=== PATIENT | female | born 1995 | race Two or more races ===

== ENCOUNTER 2016-08-31 10:50 | Inpatient (IN) | payer MEDICAID ==
[2016-08-31] MEDS ORDERED: Morphine Sulfate 4 mg/mL 1mL Syr ONE (11:25)
[2016-08-31] MEDS ORDERED: Sodium Chloride 0.9% 2,000 ML IV ONE (11:25)
--- NOTE | 2016-08-31 11:27 | ED Physician Chart ---
Chief Complaint/HPI - Patient Information Date Seen:: 08/31/16 Time Seen:: 11:02 Chief Complaint:: ABD PAIN X 1 WEEK History of Present Illness:: This 20-year-old female presents with epigastric pain that began one week ago. The onset was gradual and the pain has some radiation to the back. The patient was seen at [facility] August 28 and diagnosed with acute pancreatitis. She was discharged August 29 when she was able to eat. She describes the pain as aching and sharp gives a severity at the present time of 8 /10. The pain is made worse by eating. No relieving factors. Pain is accompanied by nausea with no vomiting or diarrhea. Has a past history of UTIs and is having some dysuria and urinary frequency. No history of recent fever, chills or diaphoresis. No prior episodes of pancreatitis. The patient uses alcohol only occasionally. Her only medication is Proventil which he takes as needed for asthma episodes. Allergies:: Allergies Allergy/AdvReac Type Severity Reaction Status Date / Time No Known Allergies Allergy Verified 08/31/16 11:02 Review of Systems - Review of Systems General/Constitutional: No fever, No chills, No diaphoresis, No edema Skin: No skin lesions, No rash, No bruising Head: No headache, No light-headedness Eyes: No loss of vision, No pain, No diplopia ENT: No earache, No nasal drainage, No sore throat Neck: No neck pain, No swelling, No thyromegaly, No mass noted Cardio Vascular: No chest pain, No palpitations, No PND, No edema Pulmonary: No SOB, No cough, No sputum, No wheezing GI: Nausea, No vomiting, No diarrhea, Pain, No constipation, No hematemesis G/U: Dysuria, Frequency, No hematuria Career Development Specialist: No vaginal discharge, Other (the patient's most recent menstrual period was in July he had only mild spotting at that time. Her last normal menstrual period was in June.) Musculoskeletal: Bone or joint pain, No muscle pain Endocrine: No polyuria, No polydipsia Psychiatric: Prior psych history, No depression, No suicidal ideation Hematopoietic: No bruising Allergic/Immuno: No urticaria, No angioedema Neurological: No syncope, No focal symptoms, No weakness, No paresthesia, No headache, No seizure, No confusion, No vertigo Past Medical History - Past Medical History Past Medical History: Asthma/COPD Family History: Heart disease, Diabetes Melitus, Other (hypertension) Social History: Non Smoker (occasional alcohol), No Drug Use, Single, Employed Employment:: Works as a server cashier. Family Medical History - Family Member Mother History Unknown: Yes Physical Exam - Physical Examination General/Constitutional: Awake, Well-developed, well-nourished, Alert, GCS 15, Non-toxic appearing, Ambulatory Other Gen/Cons comments:: Does not appear to be in significant discomfort. Head: Atraumatic Eyes: Lids, conjuctiva normal, PERRL, EOMI Other Eyes comments:: Sclera are not jaundiced. Skin: No rash, No skin lesions, No ecchymosis Other Skin comments:: Patient has a birthmark which is quite small at the 9 o'clock position Of The umbilicus. ENMT: External ears, nose nl, Nasal exam nl, Lips, teeth, gums nl, Oropharynx nl , Tonsils nl Neck: Nontender, Full ROM w/o pain, No JVD, No nuchal rigidity, No mass, No stridor Respiratory: Nl effort/Exclusion, Clear to Auscultation, No Wheeze/Rhonchi/Rales Cardio Vascular: RRR, No murmur, gallop, rubs, NL S1 S2 Other Cardio Vascular comments:: Good pulses in all 4 extremities Other GI comments:: The abdomen is flat and nondistended. Bowel sounds are decreased but present. There is moderate tenderness in the epigastric region without associated rebound or guarding. There is mild tenderness in the right upper quadrant with no palpable liver edge. The spleen was not palpable. No pulsatile masses. No hernias. : No CVA tenderness Extremities: No tenderness or effusion, Full ROM, normal strength in all extremities, No edema Misc: Normal back, No paraspinal tenderness Other Misc comments:: No spinal tenderness of the thoracic or lumbar spine. Labs/Radiology/EKG Results - Lab Results Results: Laboratory Tests 08/31/16 08/31/16 08/31/16 11:25 11:25 11:30 WBC 10.0 RBC 4.68 Hgb 12.6 Hct 37.8 MCV 80.9 L MCH 26.9 L MCHC Differential 33.3 RDW 11.6 Plt Count 208 MPV 8.1 Neutrophils % 70.8 Lymphocytes % 18.7 L Monocytes % 7.5 Eosinophils % 2.2 LFTs were within normal parameters. The amylase was normal Basophils % 0.8 Sodium Potassium Chloride Carbon Dioxide Anion Gap BUN Creatinine Est GFR ( Amer) Est GFR (Non-Af Amer) BUN/Creatinine Ratio Glucose Calcium Total Bilirubin AST ALT and the lipase was elevated at 157. Alkaline Phosphatase Total Protein Albumin Globulin Albumin/Globulin Ratio Amylase Lipase Urine Source RANDOM Urine Color YELLOW Urine Clarity HAZY Urine pH 6.0 Ur Specific [place] 1.015 Urine Protein NEGATIVE Urine Glucose (UA) NEGATIVE Urine Ketones 15 H Urine Blood TRACE Urine Nitrate NEGATIVE Urine Bilirubin NEGATIVE Urine Urobilinogen 1.0 Ur Leukocyte Esterase LARGE H Urine RBC 2-5 Urine WBC 10-25 H Ur Epithelial Cells FEW Urine Bacteria OCCASIONAL Urine Test NEGATIVE 08/31/16 11:30 WBC RBC Hgb Hct MCV MCH MCHC Differential RDW Plt Count MPV Neutrophils % Lymphocytes % Monocytes % Eosinophils % Basophils % Sodium 137 Potassium 3.6 Chloride 102 Carbon Dioxide 25.9 Anion Gap 12.7 BUN 10 Creatinine 0.7 Est GFR ( Amer) > 60.0 Est GFR (Non-Af Amer) > 60.0 BUN/Creatinine Ratio 14.3 Glucose 91 Calcium 9.8 Total Bilirubin 1.0 AST 17 ALT 12 Alkaline Phosphatase 86 Total Protein 7.9 Albumin 4.4 Globulin 3.5 Albumin/Globulin Ratio 1.3 Amylase 92 Lipase 157 H Urine Source Urine Color Urine Clarity Urine pH Ur Specific [place] Urine Protein Urine Glucose (UA) Urine Ketones Urine Blood Urine Nitrate Urine Bilirubin Urine Urobilinogen Ur Leukocyte Esterase Urine RBC Urine WBC Ur Epithelial Cells Urine Bacteria Urine Test Laboratory findings: patient CBC was unremarkable with no leukocytosis or anemia. Electrolytes were all within normal parameters. Renal function was normal. Liver function appears normal. The amylase was within the normal range but the lipase was elevated at a value of 157. This is consistent with acute pancreatitis. Assessment - Assessment General Assessment: CASE SUMMARY: this 20-year-old female presents with epigastric pain that began one week ago. She was seen at [facility] on August 28 and admitted with a diagnosis of acute pancreatitis. She was discharged August 29 but has continued to have severe abdominal pain brought on by eating since her discharge. Physical examination there's moderate tenderness in the epigastric region with no associated rebound regarding. Laboratory studies show that she still has an elevated lipase level. The patient's symptoms were addressed with Jannet normal saline, Zofran and morphine. The patient is currently pain-free. She will be admitted for further bowel rest, hydration and pain management. She also needs additional workup to identify the cause for the pancreatitis. MDM DDX OF EPIGASTRIC PAIN: NOT ischemic heart disease based on the patient's age, history and physical examination. NOT Acute cholecystitis based on the patient's history of a negative ultrasound done last week, normal LFTs and minimal tenderness in the right upper quadrant. NOT Acute appendicitis based on the patient's history, physical examination and a negative CT scan from a week ago. ED Septic Shock - . Is Septic Shock (SBP<90, OR Lactate>4 mmol\L) present?: No Reassessment (Disposition) - Reassessment Reassessment Condition:: Improved - Diagnosis Diagnosis:: ACUTE PANCREATITIS, ACUTE CYSTITIS - Aftercare/Follow up Instructions Aftercare/Follow-Up Instructions:: Counseled pt regarding lab results/diagnosis & need follow up - Patient Disposition Discharge/Transfer:: Acute Care w/in this hosp Accepting Physician:: DR. BONE
[2016-08-31 11:39] LABS: % BASOPHILS 0.8 % (0.0-2.0); % EOSINOPHILS 2.2 % (0.0-5.0); % LYMPHOCYTES 18.7 % (20.0-50.0); % MONOCYTES 7.5 % (2.0-10.0); % NEUTROPHILS 70.8 % (40.0-80.0); HEMATOCRIT 37.8 % (35.0-45.0); HEMOGLOBIN 12.6 gm/dL (11.7-15.5); MEAN CELL VOLUME 80.9 fl (81-100); MEAN CORPUSCULAR HEMOGLOBIN 26.9 pg (27.0-31.0); MEAN CORPUSCULAR HGB CONC 33.3 pg (28.0-36.0); MEAN PLATELET VOLUME 8.1 fl; PLATELET COUNT 208 Th/cmm (150-400); RED BLOOD COUNT 4.68 Mil/cmm (3.80-5.10); RED CELL DISTRIBUTION WIDTH 11.6 % (11.5-20.0)
[2016-08-31 11:50] LABS: URINE BILIRUBIN NEGATIVE (NEGATIVE); URINE BLOOD TRACE (NEGATIVE); URINE COLOR YELLOW; URINE GLUCOSE (UA) NEGATIVE (NEGATIVE); URINE KETONE 15 mg/dL (NEGATIVE); URINE PROTEIN NEGATIVE (NEGATIVE)
[2016-08-31 11:52] LABS: URINE BACTERIA OCCASIONAL /hpf (NONE SEEN); URINE EPITHELIAL CELLS FEW /lpf (FEW)
[2016-08-31 11:53] LABS: ALB/GLOB RATIO 1.3 (1.0-1.8); ALKALINE PHOSPHATASE 86 U/L (34-104); AMYLASE SERUM 92 U/L (29-103); ANION GAP 12.7 (7.0-16.0); BUN - UREA NITROGEN 10 mg/dL (7-25); BUN/CREATININE RATIO 14.3; CALCIUM SERUM 9.8 mg/dL (8.6-10.3); CARBON DIOXIDE 25.9 mEq/L (21.0-31.0); CHLORIDE 102 mEq/L (98-107); CREATININE - SERUM 0.7 mg/dL (0.6-1.2); GLUCOSE 91 mg/dL (70-105); LIPASE 157 U/L (11-82); POTASSIUM SERUM 3.6 mEq/L (3.5-5.1); SGOT 17 U/L (13-39); SGPT/ALT 12 U/L (7-52); SODIUM SERUM 137 mEq/L (136-145)
[2016-08-31] MEDS ORDERED: Sodium Chloride 0.45% 1,000 ML IV ONE (15:07)
[2016-08-31 16:12] LABS: TRIGLYCERIDES 71 mg/dL (<150)
[2016-08-31] MEDS ORDERED: HYDROmorphone 2 mg/mL 1mL Vial IVP PRN (16:54)
[2016-08-31] MEDS ORDERED: Sodium Chloride 0.9% 1,000 ML IV SCH (17:00)
[2016-08-31 20:01] LABS: AMPHETAMINE URINE NEGATIVE (NEGATIVE); BARBITURATES URINE NEGATIVE (NEGATIVE)
[2016-09-01 08:03] LABS: % BASOPHILS 0.3 % (0.0-2.0); % EOSINOPHILS 1.8 % (0.0-5.0); % LYMPHOCYTES 21.4 % (20.0-50.0); % MONOCYTES 7.9 % (2.0-10.0); % NEUTROPHILS 68.6 % (40.0-80.0); HEMOGLOBIN 11.5 gm/dL (11.7-15.5); MEAN CELL VOLUME 81.6 fl (81-100); MEAN CORPUSCULAR HEMOGLOBIN 28.3 pg (27.0-31.0); MEAN CORPUSCULAR HGB CONC 34.6 pg (28.0-36.0); MEAN PLATELET VOLUME 8.8 fl; NEUTROPHILE ABSOLUTE 5.7 Th/cmm (1.8-8.0); PLATELET COUNT 195 Th/cmm (150-400); RED BLOOD COUNT 4.08 Mil/cmm (3.80-5.10); RED CELL DISTRIBUTION WIDTH 11.4 % (11.5-20.0); WHITE BLOOD COUNT 8.4 Th/cmm (4.8-10.8)
[2016-09-01 08:04] LABS: HEMATOCRIT 33.3 % (35.0-45.0)
--- NOTE | 2016-09-01 08:39 | General Progress Note ---
Subjective - Review of Systems Service Date: 09/01/16 Subjective: Pain is less Objective - Results Result Diagrams: 09/01/16 04:50 08/31/16 11:30 Recent Labs: Laboratory Last Values WBC 8.4 Th/cmm (4.8-10.8) 09/01/16 04:50 RBC 4.08 Mil/cmm (3.80-5.10) 09/01/16 04:50 Hgb 11.5 gm/dL (11.7-15.5) L 09/01/16 04:50 Hct 33.3 % (35.0-45.0) L D 09/01/16 04:50 MCV 81.6 fl (81-100) 09/01/16 04:50 MCH 28.3 pg (27.0-31.0) 09/01/16 04:50 MCHC Differential 34.6 pg (28.0-36.0) 09/01/16 04:50 RDW 11.4 % (11.5-20.0) L 09/01/16 04:50 Plt Count 195 Th/cmm (150-400) 09/01/16 04:50 MPV 8.8 fl 09/01/16 04:50 Neutrophils % 68.6 % (40.0-80.0) 09/01/16 04:50 Lymphocytes % 21.4 % (20.0-50.0) 09/01/16 04:50 Monocytes % 7.9 % (2.0-10.0) 09/01/16 04:50 Eosinophils % 1.8 % (0.0-5.0) 09/01/16 04:50 Basophils % 0.3 % (0.0-2.0) 09/01/16 04:50 Sodium 137 mEq/L (136-145) 08/31/16 11:30 Potassium 3.6 mEq/L (3.5-5.1) 08/31/16 11:30 Chloride 102 mEq/L (98-107) 08/31/16 11:30 Carbon Dioxide 25.9 mEq/L (21.0-31.0) 08/31/16 11:30 Anion Gap 12.7 (7.0-16.0) 08/31/16 11:30 BUN 10 mg/dL (7-25) 08/31/16 11:30 Creatinine 0.7 mg/dL (0.6-1.2) 08/31/16 11:30 Est GFR ( Amer) > 60.0 ml/min 08/31/16 11:30 Est GFR (Non-Af Amer) > 60.0 ml/min 08/31/16 11:30 BUN/Creatinine Ratio 14.3 08/31/16 11:30 Glucose 91 mg/dL (70-105) 08/31/16 11:30 Calcium 9.8 mg/dL (8.6-10.3) 08/31/16 11:30 Total Bilirubin 1.0 mg/dL (0.3-1.0) 08/31/16 11:30 AST 17 U/L (13-39) 08/31/16 11:30 ALT 12 U/L (7-52) 08/31/16 11:30 Alkaline Phosphatase 86 U/L (34-104) 08/31/16 11:30 Total Protein 7.9 gm/dL (6.0-8.3) 08/31/16 11:30 Albumin 4.4 gm/dL (3.7-5.3) 08/31/16 11:30 Globulin 3.5 gm/dL 08/31/16 11:30 Albumin/Globulin Ratio 1.3 (1.0-1.8) 08/31/16 11:30 Triglycerides 71 mg/dL (<150) 08/31/16 11:30 Amylase 92 U/L (29-103) 08/31/16 11:30 Lipase 157 U/L (11-82) H 08/31/16 11:30 Urine Source RANDOM 08/31/16 11:25 Urine Color YELLOW 08/31/16 11:25 Urine Clarity HAZY (CLEAR) 08/31/16 11:25 Urine pH 6.0 08/31/16 11:25 Ur Specific [place] 1.015 (1.005-1.030) 08/31/16 11:25 Urine Protein NEGATIVE mg/dL (NEGATIVE) 08/31/16 11:25 Urine Glucose (UA) NEGATIVE mg/dL (NEGATIVE) 08/31/16 11:25 Urine Ketones 15 mg/dL (NEGATIVE) H 08/31/16 11:25 Urine Blood TRACE (NEGATIVE) 08/31/16 11:25 Urine Nitrate NEGATIVE (NEGATIVE) 08/31/16 11:25 Urine Bilirubin NEGATIVE (NEGATIVE) 08/31/16 11:25 Urine Urobilinogen 1.0 E.U./dL (0.2 - 1.0) 08/31/16 11:25 Ur Leukocyte Esterase LARGE (NEGATIVE) H 08/31/16 11:25 Urine RBC 2-5 /hpf (0-5) 08/31/16 11:25 Urine WBC 10-25 /hpf (0-5) H 08/31/16 11:25 Ur Epithelial Cells FEW /lpf (FEW) 08/31/16 11:25 Urine Bacteria OCCASIONAL /hpf (NONE SEEN) 08/31/16 11:25 Urine Test NEGATIVE 08/31/16 11:25 Urine Opiates Screen NEGATIVE (NEGATIVE) 08/31/16 11:25 Ur Barbiturates Screen NEGATIVE (NEGATIVE) 08/31/16 11:25 Ur Phencyclidine Scrn NEGATIVE (NEGATIVE) 08/31/16 11:25 Amphetamines Screen NEGATIVE (NEGATIVE) 08/31/16 11:25 U Methamphetamines Scrn NEGATIVE (NEGATIVE) 08/31/16 11:25 U Benzodiazepines Scrn NEGATIVE (NEGATIVE) 08/31/16 11:25 U Cocaine Metab Screen NEGATIVE (NEGATIVE) 08/31/16 11:25 U Cannabinoids Screen NEGATIVE (NEGATIVE) 08/31/16 11:25 Ethyl Alcohol < 10 mg/dL (0-10) 08/31/16 11:30 - Physical Exam Vitals and I&O: Vital Signs Temp 97.5 F 09/01/16 06:00 Pulse 69 09/01/16 06:00 Resp 19 09/01/16 06:00 BP 104/50 09/01/16 06:00 Pulse Ox 98 09/01/16 06:00 Intake & Output 08/31/16 09/01/16 09/01/16 18:59 06:59 18:59 Intake Total 100 Balance 100 Intake: Oral 100 Active Medications: Current Medications Hydromorphone HCl (Dilaudid) 2 mg IVP Q6HR PRN PRN Reason: Pain (Moderate) Stop: 10/30/16 16:53 Last Admin: 08/31/16 17:24 Dose: 2 mg Sodium Chloride (Nacl 0.9%) 1,000 mls @ 125 mls/hr IV .Q8H VINAY Stop: 10/30/16 16:59 Last Admin: 08/31/16 17:23 Dose: 125 mls/hr Ondansetron HCl (Zofran) 4 mg IV Q4H PRN PRN Reason: Nausea / Vomiting Stop: 10/30/16 16:55 Last Admin: 08/31/16 20:52 Dose: 4 mg Pantoprazole Sodium (Protonix) 40 mg IVP DAILY [facility] Stop: 10/31/16 08:59 Last Admin: 09/01/16 08:24 Dose: 40 mg General: Alert, Oriented x3, No acute distress, Mild distress HEENT: PERRLA Neck: Supple Cardiovascular: Regular rate Lungs: Clear to auscultation Abdomen: Bowel sounds, Soft, Other (Tender at palpation in epygastry) Extremities: Other (No edema) Neurological: Normal gait Skin: Other (Warm and dry) Psych/Mental Status: Mental status NL Assessment/Plan - Problem List Patient Problems: All Active Problems UPPER ABDOMINAL PAIN (Acute) - Assessment Assessment: Patient is awake, alert, calm, in no acute distress. Dx: Pancreatitis - Plan Plan: Patient on pain control, IV d5ns, npo. Awaitting GI eval.
[2016-09-01] MEDS: D5-0.9%NS 1,000 ML IV SCH (08:56)
[2016-09-01 09:03] LABS: ALB/GLOB RATIO 1.1 (1.0-1.8); ALKALINE PHOSPHATASE 70 U/L (34-104); AMYLASE SERUM 44 U/L (29-103); ANION GAP 13.5 (7.0-16.0); BILIRUBIN,DIRECT 0.26 mg/dL (0.0-0.2); BILIRUBIN,TOTAL 0.8 mg/dL (0.3-1.0); BUN - UREA NITROGEN 8 mg/dL (7-25); CARBON DIOXIDE 21.5 mEq/L (21.0-31.0); CHLORIDE 104 mEq/L (98-107); CREATININE - SERUM 0.5 mg/dL (0.6-1.2); GLUCOSE 68 mg/dL (70-105); LIPASE 58 U/L (11-82); SGOT 20 U/L (13-39); SGPT/ALT 14 U/L (7-52); SODIUM SERUM 135 mEq/L (136-145)
--- NOTE | 2016-09-01 10:41 | History & Physical ---
CHIEF COMPLAINT: Abdominal pain. HISTORY OF PRESENT ILLNESS: This is the case of a 20-year-old female who reported that problem started one week ago when abdominal pain that radiated to the back. The patient went to [facility] and the diagnosis was pancreatitis. She was discharged and she was able eat, but pain started again and became 8-10, reason why the patient decided to come to ER for evaluation and treatment. PAST MEDICAL HISTORY: The patient has past medical history of asthma. Last attack was when she was a child. The patient referred UTI 2 years ago. SOCIAL HISTORY: The patient lives with family. She denies alcohol or drug use. No smoking. FAMILY HISTORY: There is a family history of diabetes and heart disease. ALLERGIES: No known allergies. MEDICATIONS: Reviewed. REVIEW OF SYSTEMS: GENERAL: The patient denies fever, chills, or edema. LUNGS: The patient denies shortness of breath. HEART: The patient denies chest pain. ABDOMEN: The patient referred epigastric abdominal pain. EXTREMITIES: Unremarkable. NEUROLOGICAL: Unremarkable. PHYSICAL EXAMINATION: GENERAL: Does reveal a fairly nourished and developed female, awake, alert and complaining of abdominal pain. HEENT: Head is atraumatic. EYES: Pupils are reactive to light. Fundus not examined at this time. Nose: No evidence of nasal obstruction. Ears: No evidence of any discharge. Mouth: Fairly ____. LUNGS: Bilateral air entry. No crackles or wheezing. HEART: Regular rhythm. ABDOMEN: Soft and tender on palpation in epigastric. Bowel sounds ____, no masses. EXTREMITIES: No edema. Full movement of all extremities. NEUROLOGICAL: The patient is awake, alert, in no acute distress. Nerves 2-12 grossly intact. No neurological deficit at this moment. DIAGNOSIS: Pancreatitis. PLAN: 1. The patient will be admitted to medical surgery floor. 2. Dilaudid for pain control. 3. IV normal saline. 4. Consult with Dr. Arevalo, GI. 5. CBC, CMP at a.m. JOB# [id number]
--- NOTE | 2016-09-01 11:24 | Diagnostic Imaging Report ---
Abdominal ultrasound HISTORY: Pain The liver exhibits a homogeneous parenchyma. No focal lesions. No intraluminal abnormality seen in the gallbladder. No calculi are seen. No biliary dilatation. Pancreas is not well seen due to bowel gas. No focal renal lesions. No other retroperitoneal or intra-abdominal abnormalities. IMPRESSION: 1. Somewhat limited exam due to bowel gas. (Pancreas cannot be well visualized). 2. No other definite abnormalities
--- NOTE | 2016-09-01 21:32 | Admit Criteria Form ---
Admit Criteria Forms - Admit Criteria Diagnosis: ABDOMINAL PAIN Clinical Indications for Admission to Inpatient Care (Place 'X' for any and all applicable criteria): Admission is indicated for ANY ONE of the following(1)(2)(3)(4)(5): [ X]I. Inpatient admission required rather than observation care (Also use Abdominal Pain: Observation Care, as appropriate) because of ANY ONE of the following: [ ]a) Severe pain requiring acute inpatient management [X ]b) Identification of etiology/finding that requires inpatient care (eg, aortic dissection, free air) [ ]c) Absent bowel sounds with complete ileus(6) [ ]d) Suspected toxic megacolon [ ]e) Severe electrolyte abnormalities requiring inpatient care [ ]f) High fever or infection requiring inpatient admission as indicated by ANY ONE of following(7)(8): [ ] i) Appropriate outpatient or observational care antimicrobial treatment unavailable, not effective, or not feasible [ ] ii) Documented bacteremia [ ] iii) Temperature > 104.9 degrees F (oral) [ ] iv) T >103.1 F (oral) or < 96.8 F(rectal) that does not respond to all emergency treatment measures [ ]g) Signs of intestinal obstruction [B] [ ]h) Hemodynamic instability [ ]i) IV fluid to replace significant ongoing losses (greater than 3 L/m2 per day) (12)(13) [ ]j) Percutaneous or open drainage (eg, abscess, biliary tract ) procedures [ ]k) Parenteral nutrition regimen that must be implemented on inpatient basis [ ]l) Other condition,treatment or monitoring requiring inpatient admission. [ ]II. Peritoneal signs present [ ]III. Surgery needed that cannot be performed on an ambulatory basis. [ ]IV. Evaluation requires patient to not eat or drink for extended period ( eg, more than 24 hours). [ ]V. Contraindications and/or Inappropriate clinical situations for Observational Care in patients with abdominal pain, when ANY ONE of the following is required: [ ]a) Thorough evaluation is required to prevent catastrophic events due to delays in diagnosing (e.g.Mesenteric ischemia) 1,3 [ ]b) Patient with severe pathology or with chronic symptoms unlikely to improve in the ED stay (3) [ ]. General contraindications and/or Inappropriate clinical situations for Observational Care in patients with abdominal pain, when ANY ONE of the following is required: [ ]a) Prediction of prolongation of LOS based on ANY ONE of the following may be considered as a contraindication for observational care 2, 3, 4, 5, 6, 7, 8, 9, 10, 11 [ ]i) Age > 65 yrs. [ ]ii) Patient arriving by ambulance [ ]iii) Patient with high acuity [ ]iv) Patient requiring vital sign monitoring [ ]v) Patient on IV medication [ ]b) Systolic blood pressures 180mmHg 3,12 [ ]c) Patient with altered mental status including delirium and other alteration of consciousness, (3) [ ]d) Patient whose discharge disposition will be to a assisted home or rehabilitation home should not be managed in Emergency Department Observation Unit. CMS rule requires 3 days hospital stay before such placement.3,13 [ ]e) Patient with failure to thrive due to broad array of etiologies 3,16,17 [ ]f) Inability to ambulate 3,14 Extended stay beyond goal length of stay may be needed for(2)(3): [ ]a) Persistent abdominal pain with suspected intra-abdominal process [ ]b) Diagnosed condition requiring continued stay (e.g., pancreatitis, complicated diverticulitis) [ ]c) Surgery (e.g., colectomy) The original [facility] content created by [employer] has been revised. The portions of the content which have been revised are identified through the use of italic text or in bold, and [facility] has neither reviewed nor approved the modified material.All other unmodified content is copyright [employer]. Please see references footnoted in the original [facility] edition 2016 Admit Criteria Met?: Yes
--- NOTE | 2016-09-02 02:57 | Consultation ---
INPATIENT GASTROINTESTINAL CONSULTATION REFERRING PHYSICIAN: Dr. Mario Moreno. REASON FOR CONSULTATION: Pancreatitis. HISTORY OF PRESENT ILLNESS: This is a 20-year-old female who was recently at an outside hospital with a diagnosis of pancreatitis of unclear etiology. She had been discharged, went home and tried to eat some jello, but then had recurrent abdominal pain; therefore, came back to the hospital. Feeling better today. When I am seeing her. denies having any abdominal pain, nausea or vomiting, denies a change in bowel habits or GI bleeding. PAST MEDICAL HISTORY: Asthma. PAST SURGICAL HISTORY: None to abdomen. SOCIAL HISTORY: No tobacco or IV drug usage, drinks alcohol socially on occasion, but not frequent. ALLERGIES: None. CURRENT MEDICATIONS: Normal saline, Dilaudid, Zofran and Protonix. REVIEW OF SYSTEMS: Ten point review of system was performed, pertinent positive was the abdominal pain, pancreatitis. All other systems were otherwise negative. PHYSICAL EXAMINATION: VITAL SIGNS: Temperature is 99.6, breathing 18, pulse of 73, blood pressure 101/58, satting 98%. GENERAL: In no apparent distress. EYES: Anicteric, normal conjunctivae. HEENT: Normocephalic, atraumatic. Moist mucous membranes. NECK: Soft, supple. CHEST: Clear, normal effort. CARDIOVASCULAR: Regular rate and rhythm. ABDOMEN: Soft, nontender, nondistended, normal bowel sounds. SKIN: Warm and dry. EXTREMITIES: Reveal no cyanosis. PSYCHOLOGIC: Alert and oriented x 3. LABORATORY DATA: Show white count 8.4, hemoglobin 11.5, platelets of 195, total bilirubin 0.8, AST 20, ALT 14, alkaline phosphatase 70. Lipase is 58. Alcohol level was negative. Urine tox screen was negative. Abdominal ultrasound was unremarkable, no gallstones. IMPRESSION: A 20-year-old female with pancreatitis has clinically improved, likely had pancreatitis from before and slowly getting better, but made worse, when she was at home and she tried eat. Today, she is no longer having any pain. Cause is still illusive. Workup can be done by testing the patient for triglyceride level, YARITZA, IgG subtype 4 and MRI can also be performed. If these tests were inconclusive, additional test could be endoscopic ultrasound of the pancreas, which is not done here, but would have to be done at ____ center. PLAN: 1.Check a triglyceride level. 2.Check an YARITZA level. 3.Check an IgG level. Of note, IgG subtype 4 is not available at this hospital testing ____. 4.Check an MRCP. 5.Clear liquid diet. Thank you for allowing me to participate. Please call me if any questions. JOB# [id number]
[2016-09-02 06:34] LABS: % BASOPHILS 0.4 % (0.0-2.0); % EOSINOPHILS 2.9 % (0.0-5.0); % LYMPHOCYTES 19.2 % (20.0-50.0); % MONOCYTES 8.9 % (2.0-10.0); % NEUTROPHILS 68.6 % (40.0-80.0); HEMATOCRIT 34.1 % (35.0-45.0); HEMOGLOBIN 11.6 gm/dL (11.7-15.5); MEAN CELL VOLUME 81.7 fl (81-100); MEAN CORPUSCULAR HEMOGLOBIN 27.9 pg (27.0-31.0); MEAN CORPUSCULAR HGB CONC 34.2 pg (28.0-36.0); MEAN PLATELET VOLUME 8.1 fl; NEUTROPHILE ABSOLUTE 5.1 Th/cmm (1.8-8.0); PLATELET COUNT 198 Th/cmm (150-400); RED BLOOD COUNT 4.17 Mil/cmm (3.80-5.10); RED CELL DISTRIBUTION WIDTH 11.4 % (11.5-20.0); WHITE BLOOD COUNT 7.3 Th/cmm (4.8-10.8)
[2016-09-02 06:54] LABS: ALB/GLOB RATIO 1.1 (1.0-1.8); ALKALINE PHOSPHATASE 66 U/L (34-104); BILIRUBIN,TOTAL 0.7 mg/dL (0.3-1.0); BUN - UREA NITROGEN 5 mg/dL (7-25); BUN/CREATININE RATIO 8.3; CALCIUM SERUM 8.8 mg/dL (8.6-10.3); CARBON DIOXIDE 28.6 mEq/L (21.0-31.0); CHLORIDE 107 mEq/L (98-107); CREATININE - SERUM 0.6 mg/dL (0.6-1.2); GLUCOSE 120 mg/dL (70-105); POTASSIUM SERUM 3.6 mEq/L (3.5-5.1); SGOT 14 U/L (13-39); SGPT/ALT 9 U/L (7-52); SODIUM SERUM 138 mEq/L (136-145)
--- NOTE | 2016-09-02 08:48 | General Progress Note ---
Subjective - Review of Systems Service Date: 09/02/16 Subjective: No Pain, I fell better Objective - Results Result Diagrams: 09/02/16 06:13 09/02/16 06:13 Recent Labs: Laboratory Last Values WBC 7.3 Th/cmm (4.8-10.8) 09/02/16 06:13 RBC 4.17 Mil/cmm (3.80-5.10) 09/02/16 06:13 Hgb 11.6 gm/dL (11.7-15.5) L 09/02/16 06:13 Hct 34.1 % (35.0-45.0) L 09/02/16 06:13 MCV 81.7 fl (81-100) 09/02/16 06:13 MCH 27.9 pg (27.0-31.0) 09/02/16 06:13 MCHC Differential 34.2 pg (28.0-36.0) 09/02/16 06:13 RDW 11.4 % (11.5-20.0) L 09/02/16 06:13 Plt Count 198 Th/cmm (150-400) 09/02/16 06:13 MPV 8.1 fl 09/02/16 06:13 Neutrophils % 68.6 % (40.0-80.0) 09/02/16 06:13 Lymphocytes % 19.2 % (20.0-50.0) L 09/02/16 06:13 Monocytes % 8.9 % (2.0-10.0) 09/02/16 06:13 Eosinophils % 2.9 % (0.0-5.0) 09/02/16 06:13 Basophils % 0.4 % (0.0-2.0) 09/02/16 06:13 Sodium 138 mEq/L (136-145) 09/02/16 06:13 Potassium 3.6 mEq/L (3.5-5.1) 09/02/16 06:13 Chloride 107 mEq/L (98-107) 09/02/16 06:13 Carbon Dioxide 28.6 mEq/L (21.0-31.0) 09/02/16 06:13 Anion Gap 6.0 (7.0-16.0) L 09/02/16 06:13 BUN 5 mg/dL (7-25) L 09/02/16 06:13 Creatinine 0.6 mg/dL (0.6-1.2) 09/02/16 06:13 Est GFR ( Amer) > 60.0 ml/min 09/02/16 06:13 Est GFR (Non-Af Amer) > 60.0 ml/min 09/02/16 06:13 BUN/Creatinine Ratio 8.3 09/02/16 06:13 Glucose 120 mg/dL (70-105) H 09/02/16 06:13 Calcium 8.8 mg/dL (8.6-10.3) 09/02/16 06:13 Total Bilirubin 0.7 mg/dL (0.3-1.0) 09/02/16 06:13 Direct Bilirubin 0.26 mg/dL (0.0-0.2) H 09/01/16 04:50 AST 14 U/L (13-39) 09/02/16 06:13 ALT 9 U/L (7-52) 09/02/16 06:13 Alkaline Phosphatase 66 U/L (34-104) 09/02/16 06:13 Total Protein 6.8 gm/dL (6.0-8.3) 09/02/16 06:13 Albumin 3.6 gm/dL (3.7-5.3) L 09/02/16 06:13 Globulin 3.2 gm/dL 09/02/16 06:13 Albumin/Globulin Ratio 1.1 (1.0-1.8) 09/02/16 06:13 Triglycerides 71 mg/dL (<150) 08/31/16 11:30 Amylase 44 U/L (29-103) 09/01/16 04:50 Lipase 96 U/L (11-82) H 09/02/16 06:13 Urine Source RANDOM 08/31/16 11:25 Urine Color YELLOW 08/31/16 11:25 Urine Clarity HAZY (CLEAR) 08/31/16 11:25 Urine pH 6.0 08/31/16 11:25 Ur Specific [place] 1.015 (1.005-1.030) 08/31/16 11:25 Urine Protein NEGATIVE mg/dL (NEGATIVE) 08/31/16 11:25 Urine Glucose (UA) NEGATIVE mg/dL (NEGATIVE) 08/31/16 11:25 Urine Ketones 15 mg/dL (NEGATIVE) H 08/31/16 11:25 Urine Blood TRACE (NEGATIVE) 08/31/16 11:25 Urine Nitrate NEGATIVE (NEGATIVE) 08/31/16 11:25 Urine Bilirubin NEGATIVE (NEGATIVE) 08/31/16 11:25 Urine Urobilinogen 1.0 E.U./dL (0.2 - 1.0) 08/31/16 11:25 Ur Leukocyte Esterase LARGE (NEGATIVE) H 08/31/16 11:25 Urine RBC 2-5 /hpf (0-5) 08/31/16 11:25 Urine WBC 10-25 /hpf (0-5) H 08/31/16 11:25 Ur Epithelial Cells FEW /lpf (FEW) 08/31/16 11:25 Urine Bacteria OCCASIONAL /hpf (NONE SEEN) 08/31/16 11:25 Urine Test NEGATIVE 08/31/16 11:25 Urine Opiates Screen NEGATIVE (NEGATIVE) 08/31/16 11:25 Ur Barbiturates Screen NEGATIVE (NEGATIVE) 08/31/16 11:25 Ur Phencyclidine Scrn NEGATIVE (NEGATIVE) 08/31/16 11:25 Amphetamines Screen NEGATIVE (NEGATIVE) 08/31/16 11:25 U Methamphetamines Scrn NEGATIVE (NEGATIVE) 08/31/16 11:25 U Benzodiazepines Scrn NEGATIVE (NEGATIVE) 08/31/16 11:25 U Cocaine Metab Screen NEGATIVE (NEGATIVE) 08/31/16 11:25 U Cannabinoids Screen NEGATIVE (NEGATIVE) 08/31/16 11:25 Ethyl Alcohol < 10 mg/dL (0-10) 08/31/16 11:30 - Physical Exam Vitals and I&O: Vital Signs Temp 98.9 F 09/02/16 00:00 Pulse 68 09/02/16 00:00 Resp 17 09/02/16 00:00 BP 108/61 09/02/16 00:00 Pulse Ox 98 09/02/16 00:00 Intake & Output 09/01/16 09/02/16 09/02/16 18:59 06:59 18:59 Intake Total 200 1400 Balance 200 1400 Intake: Intake, IV Amount 1000 D5-0.9%Ns 1,000 ml @ 125 1000 mls/hr IV .Q8H [facility] Rx#: [id number] Oral 200 400 Other: # Voids 4 Active Medications: Current Medications Acetaminophen (Tylenol) 650 mg PO Q6H PRN PRN Reason: Pain (Mild) Stop: 10/31/16 20:23 Last Admin: 09/01/16 20:48 Dose: 650 mg Hydromorphone HCl (Dilaudid) 2 mg IVP Q6HR PRN PRN Reason: Pain (Moderate) Stop: 10/30/16 16:53 Last Admin: 08/31/16 17:24 Dose: 2 mg Dextrose/Sodium Chloride (D5-0.9%Ns) 1,000 mls @ 125 mls/hr IV .Q8H [facility] Stop: 10/31/16 08:44 Last Infusion: 09/02/16 02:00 Dose: Infused Ondansetron HCl (Zofran) 4 mg IV Q4H PRN PRN Reason: Nausea / Vomiting Stop: 10/30/16 16:55 Last Admin: 08/31/16 20:52 Dose: 4 mg Pantoprazole Sodium (Protonix) 40 mg IVP DAILY [facility] Stop: 10/31/16 08:59 Last Admin: 09/02/16 08:45 Dose: Not Given General: Alert, Oriented x3, Cooperative, No acute distress HEENT: Atraumatic Neck: Supple Cardiovascular: Regular rate Lungs: Clear to auscultation Abdomen: Bowel sounds, Soft (Non tender, BS +) Extremities: Other (No edema) Neurological: Normal gait Skin: Other (Warm and dry) Psych/Mental Status: Mental status NL Assessment/Plan - Problem List Patient Problems: All Active Problems UPPER ABDOMINAL PAIN (Acute) - Assessment Assessment: Patient is awake, alert, calm, in no acute distress. Dx: Pancreatitis. Today there is no pain, patient is eating, Lipase decreasing. - Plan Plan: Patient on pain control, IV d5ns. MRCP requested.
[2016-09-02] MEDS: D5-0.9%NS 1,000 ML IV SCH (21:17)
[2016-09-03 06:49] LABS: ALB/GLOB RATIO 1.1 (1.0-1.8); ALKALINE PHOSPHATASE 64 U/L (34-104); ANION GAP 6.9 (7.0-16.0); BILIRUBIN,TOTAL 0.6 mg/dL (0.3-1.0); BUN - UREA NITROGEN 5 mg/dL (7-25); CALCIUM SERUM 9.1 mg/dL (8.6-10.3); CARBON DIOXIDE 26.5 mEq/L (21.0-31.0); CHLORIDE 107 mEq/L (98-107); CREATININE - SERUM 0.5 mg/dL (0.6-1.2); GLUCOSE 98 mg/dL (70-105); POTASSIUM SERUM 3.4 mEq/L (3.5-5.1); SGOT 13 U/L (13-39); SGPT/ALT 8 U/L (7-52); SODIUM SERUM 137 mEq/L (136-145)
[2016-09-03 06:55] LABS: % BASOPHILS 0.2 % (0.0-2.0); % EOSINOPHILS 3.7 % (0.0-5.0); % LYMPHOCYTES 28.1 % (20.0-50.0); % MONOCYTES 9.4 % (2.0-10.0); % NEUTROPHILS 58.6 % (40.0-80.0); HEMATOCRIT 33.4 % (35.0-45.0); HEMOGLOBIN 11.5 gm/dL (11.7-15.5); MEAN CELL VOLUME 79.9 fl (81-100); MEAN CORPUSCULAR HEMOGLOBIN 27.6 pg (27.0-31.0); MEAN CORPUSCULAR HGB CONC 34.5 pg (28.0-36.0); MEAN PLATELET VOLUME 8.7 fl; NEUTROPHILE ABSOLUTE 4.4 Th/cmm (1.8-8.0); PLATELET COUNT 205 Th/cmm (150-400); RED BLOOD COUNT 4.18 Mil/cmm (3.80-5.10); RED CELL DISTRIBUTION WIDTH 11.6 % (11.5-20.0); WHITE BLOOD COUNT 7.5 Th/cmm (4.8-10.8)
--- NOTE | 2016-09-03 08:22 | General Progress Note ---
Subjective - Review of Systems Service Date: 09/03/16 Subjective: No Pain, I fell better Objective - Results Result Diagrams: 09/03/16 05:28 09/03/16 05:28 Recent Labs: Laboratory Last Values WBC 7.5 Th/cmm (4.8-10.8) 09/03/16 05:28 RBC 4.18 Mil/cmm (3.80-5.10) 09/03/16 05:28 Hgb 11.5 gm/dL (11.7-15.5) L 09/03/16 05:28 Hct 33.4 % (35.0-45.0) L 09/03/16 05:28 MCV 79.9 fl (81-100) L 09/03/16 05:28 MCH 27.6 pg (27.0-31.0) 09/03/16 05:28 MCHC Differential 34.5 pg (28.0-36.0) 09/03/16 05:28 RDW 11.6 % (11.5-20.0) 09/03/16 05:28 Plt Count 205 Th/cmm (150-400) 09/03/16 05:28 MPV 8.7 fl 09/03/16 05:28 Neutrophils % 58.6 % (40.0-80.0) 09/03/16 05:28 Lymphocytes % 28.1 % (20.0-50.0) 09/03/16 05:28 Monocytes % 9.4 % (2.0-10.0) 09/03/16 05:28 Eosinophils % 3.7 % (0.0-5.0) 09/03/16 05:28 Basophils % 0.2 % (0.0-2.0) 09/03/16 05:28 Sodium 137 mEq/L (136-145) 09/03/16 05:28 Potassium 3.4 mEq/L (3.5-5.1) L 09/03/16 05:28 Chloride 107 mEq/L (98-107) 09/03/16 05:28 Carbon Dioxide 26.5 mEq/L (21.0-31.0) 09/03/16 05:28 Anion Gap 6.9 (7.0-16.0) L 09/03/16 05:28 BUN 5 mg/dL (7-25) L 09/03/16 05:28 Creatinine 0.5 mg/dL (0.6-1.2) L 09/03/16 05:28 Est GFR ( Amer) > 60.0 ml/min 09/03/16 05:28 Est GFR (Non-Af Amer) > 60.0 ml/min 09/03/16 05:28 BUN/Creatinine Ratio 10.0 09/03/16 05:28 Glucose 98 mg/dL (70-105) 09/03/16 05:28 Calcium 9.1 mg/dL (8.6-10.3) 09/03/16 05:28 Total Bilirubin 0.6 mg/dL (0.3-1.0) 09/03/16 05:28 Direct Bilirubin 0.26 mg/dL (0.0-0.2) H 09/01/16 04:50 AST 13 U/L (13-39) 09/03/16 05:28 ALT 8 U/L (7-52) 09/03/16 05:28 Alkaline Phosphatase 64 U/L (34-104) 09/03/16 05:28 Total Protein 7.0 gm/dL (6.0-8.3) 09/03/16 05:28 Albumin 3.7 gm/dL (3.7-5.3) 09/03/16 05:28 Globulin 3.3 gm/dL 09/03/16 05:28 Albumin/Globulin Ratio 1.1 (1.0-1.8) 09/03/16 05:28 Triglycerides 71 mg/dL (<150) 08/31/16 11:30 Amylase 44 U/L (29-103) 09/01/16 04:50 Lipase 65 U/L (11-82) 09/03/16 05:28 Urine Source RANDOM 08/31/16 11:25 Urine Color YELLOW 08/31/16 11:25 Urine Clarity HAZY (CLEAR) 08/31/16 11:25 Urine pH 6.0 08/31/16 11:25 Ur Specific [place] 1.015 (1.005-1.030) 08/31/16 11:25 Urine Protein NEGATIVE mg/dL (NEGATIVE) 08/31/16 11:25 Urine Glucose (UA) NEGATIVE mg/dL (NEGATIVE) 08/31/16 11:25 Urine Ketones 15 mg/dL (NEGATIVE) H 08/31/16 11:25 Urine Blood TRACE (NEGATIVE) 08/31/16 11:25 Urine Nitrate NEGATIVE (NEGATIVE) 08/31/16 11:25 Urine Bilirubin NEGATIVE (NEGATIVE) 08/31/16 11:25 Urine Urobilinogen 1.0 E.U./dL (0.2 - 1.0) 08/31/16 11:25 Ur Leukocyte Esterase LARGE (NEGATIVE) H 08/31/16 11:25 Urine RBC 2-5 /hpf (0-5) 08/31/16 11:25 Urine WBC 10-25 /hpf (0-5) H 08/31/16 11:25 Ur Epithelial Cells FEW /lpf (FEW) 08/31/16 11:25 Urine Bacteria OCCASIONAL /hpf (NONE SEEN) 08/31/16 11:25 Urine Test NEGATIVE 08/31/16 11:25 Urine Opiates Screen NEGATIVE (NEGATIVE) 08/31/16 11:25 Ur Barbiturates Screen NEGATIVE (NEGATIVE) 08/31/16 11:25 Ur Phencyclidine Scrn NEGATIVE (NEGATIVE) 08/31/16 11:25 Amphetamines Screen NEGATIVE (NEGATIVE) 08/31/16 11:25 U Methamphetamines Scrn NEGATIVE (NEGATIVE) 08/31/16 11:25 U Benzodiazepines Scrn NEGATIVE (NEGATIVE) 08/31/16 11:25 U Cocaine Metab Screen NEGATIVE (NEGATIVE) 08/31/16 11:25 U Cannabinoids Screen NEGATIVE (NEGATIVE) 08/31/16 11:25 Ethyl Alcohol < 10 mg/dL (0-10) 08/31/16 11:30 - Physical Exam Vitals and I&O: Vital Signs Temp 98.2 F 09/03/16 04:00 Pulse 68 09/03/16 04:00 Resp 19 09/03/16 04:00 BP 122/69 09/03/16 04:00 Pulse Ox 98 09/03/16 04:00 Intake & Output 09/02/16 09/03/16 09/03/16 18:59 06:59 18:59 Intake Total 400 500 Output Total 350 Balance 50 500 Intake: Oral 400 500 Output: Urine 350 Other: # Voids 3 2 Active Medications: Current Medications Acetaminophen (Tylenol) 650 mg PO Q6H PRN PRN Reason: Pain (Mild) Stop: 03/18/17 20:23 Last Admin: 09/03/16 08:15 Dose: 650 mg Hydromorphone HCl (Dilaudid) 2 mg IVP Q6HR PRN PRN Reason: Pain (Moderate) Stop: 10/30/16 16:53 Last Admin: 08/31/16 17:24 Dose: 2 mg Dextrose/Sodium Chloride (D5-0.9%Ns) 1,000 mls @ 125 mls/hr IV .Q8H [facility] Stop: 10/31/16 08:44 Last Admin: 09/02/16 21:17 Dose: 125 mls/hr Ondansetron HCl (Zofran) 4 mg IV Q4H PRN PRN Reason: Nausea / Vomiting Stop: 10/30/16 16:55 Last Admin: 08/31/16 20:52 Dose: 4 mg Pantoprazole Sodium (Protonix) 40 mg IVP DAILY [facility] Stop: 10/31/16 08:59 Last Admin: 09/03/16 08:15 Dose: 40 mg General: Alert, Oriented x3, Cooperative HEENT: Atraumatic Neck: Supple Cardiovascular: Regular rate Lungs: Clear to auscultation Abdomen: Bowel sounds, Soft, Other (Non tender) Neurological: Normal gait Skin: Other (Warm and dry) Psych/Mental Status: Mental status NL Assessment/Plan - Problem List Patient Problems: All Active Problems UPPER ABDOMINAL PAIN (Acute) - Assessment Assessment: Patient is awake, alert, calm, in no acute distress. Dx: Pancreatitis. Today there is no pain, patient is eating, Lipase normal. MRCP normal. - Plan Plan: Case will be discuss with GI and to discharge patient to continue treatment with PCP.
[2016-09-03] MEDS: D5-0.9%NS 1,000 ML IV SCH (08:42)
--- NOTE | 2016-09-03 10:04 | Diagnostic Imaging Report ---
MRCP History: Pancreatitis Comparison: Ultrasound abdomen on 08/31/2016 Technique: Multiplanar T1, T2 including heavily weighted MRCP T2 images of the abdomen were obtained without IV contrast. Findings: No evidence of focal hepatic lesions. A gallbladder fold is noted. No evidence of gallstones. The common bile duct measures up to 3 mm. No evidence of common bile duct stones. No focal pancreatic or adrenal lesions. No evidence of hydronephrosis. IMPRESSION: No evidence of common bile duct dilatation or common bile duct stones No evidence of gallstones.
[2016-09-03 14:17] LABS: IGG - IMMUNOGLOBULIN G SERUM 990 mg/dL (700-1600)
--- NOTE | 2016-09-10 21:06 | Discharge Summary ---
HISTORY OF PRESENT ILLNESS: This is the case of a 20-year-old -[place] female who reported that she started with abdominal pain that radiates to the back. The patient went to [facility] and the diagnosis was pancreatitis. The patient was treated and sent home. The patient started to eat, but pain started again and became 8 to 10. For that reason the patient came to Emergency Room for evaluation and treatment. HOSPITAL COURSE AND TREATMENT: Then, this patient was admitted in the medical surgical floor. She was started on IV normal saline, Rocephin, pain management, Zofran and was put n.p.o. Consult with GI, Dr. Arevalo was done and recommendations were followed. MRI was done and MRCP was done and they showed no lithiasis or acute illness. With this treatment and after 4 days in the hospital and due to the patient was free of pain and eating well, decision was made to discharge the patient home to continue treatment with primary care physician. At the moment of the discharge, the patient was awake and alert, in no acute distress. Consult was done in this case with Dr. Arevalo, GI. DISPOSITION: The patient is sent home to continue treatment with primary care physician. IMPRESSION: Pancreatitis. JOB# [id number]
== END 2016-09-03 16:10 | disposition home or self-care (01) | DRG 282 ==
LOC: ER 10:50 → MSI 12:59
PROVIDERS: ADMIT General Practice; ATTEND General Practice
DX: K85.90 Acute pancreatitis without necrosis or infection, unspecified (principal); N30.00 Acute cystitis without hematuria; J45.909 Unspecified asthma, uncomplicated; Z83.3 Family history of diabetes mellitus; Z82.49 Family history of ischemic heart disease and other diseases of the circulatory system
CPT/HCPCS: 36415-UA; 76700-TC; 80053-TC; 80076-TC; 80320-TC; 81001-TC; 81025-TC; 82150-TC; 82784-90; 83690-TC; 84478-TC; 85025-TC; 86038-90; 87086-90; 96375; C9113; J0696; J1170; J2405; J7030; J7042; Z7610; Z7610-TC